=== PATIENT | male | born 1930 | race Caucasian/White ===

== ENCOUNTER 2017-05-31 14:18 | Inpatient (IN) | payer MEDICARE ==
--- NOTE | 2017-05-31 15:06 | CR ---
Chest 1V Frontal HISTORY: fever FINDINGS: There are interstitial infiltrates right lower lobe superimposed over the right hemidiaphr agm. Minimal patchy infiltrates are seen right mid chest. Left lung is clear. Cardiomediastinal silh ouette is within normal limits. Atherosclerotic calcification is seen in the aortic arch. No vascula r redistribution or pleural fluid is seen. Bony structures are osteopenic. Anterolateral osteophytes are noted along the thoracic spine. There is slight scoliosis convex to the right. IMPRESSION: Possible right lower lobe pneumonia. Recommend clinical correlation and follow-up.
--- NOTE | 2017-05-31 15:13 | EDM.PDOC ---
[id number] [address] [place] [address] VIA [facility] Time Seen by Provider: 05/31/17 15:13 Source of Information: Reports: Patient, EMS Notes Reviewed History Limitations: Reports: Other (pt is confused and he does not want to be here. According to the assisted living he is much weaker and much more confused. ) - History of Present Illness Onset: Gradual Duration: Day(s): Location: Reports: Generalized, Other (pt has generalized weakness. ) Associated Symptoms: Reports: Confusion, Loss of Appetite, Malaise, Weakness - Related Data Allergies Allergy/AdvReac Type Severity Reaction Status Date / Time No Known Allergies Allergy Verified 05/31/17 14:45 Home Meds: Home Meds Aspirin/Dipyridamole [Aggrenox 200-25 MG] 1 tab PO BID 06/03/15 [History] Insulin Glargine,Hum.Rec.Anlog [Lantus Solostar] 12 unit SQ BEDTIME 06/03/15 [ History] Simvastatin [Zocor] 20 mg PO BEDTIME 06/03/15 [History] Ascorbic Acid [Vitamin C] 1 tab PO DAILY 05/31/17 [History] Aspirin 1 tab PO DAILY 05/31/17 [History] Cholecalciferol (Vitamin D3) [Vitamin D3] 1 cap PO DAILY 05/31/17 [History] Cod Liver Oil 1 cap PO DAILY 05/31/17 [History] Ferrous Sulfate [Iron] 1 tab PO DAILY 05/31/17 [History] Megestrol [Megace] 40 mg PO TID 05/31/17 [History] Multivitamin [Multivitamins] 1 tab PO DAILY 05/31/17 [History] Polyethylene Glycol 3350 [MiraLAX] 1 dose PO DAILY 05/31/17 [History] Amoxicillin/Potassium Clav [Augmentin 875-125 Tablet] 1 each PO BID #8 tablet [Rx] Lactobac Cmb #3/Fos/Pantethine [Probiotic & Acidophilus] 2 each PO BID #120 capsule 06/02/17 [Rx] Past Medical History HEENT History: Reports: None Cardiovascular History: Reports: None Respiratory History: Reports: None Gastrointestinal History: Reports: None Genitourinary History: Reports: None Musculoskeletal History: Reports: Fracture, Other (See Below) Other Musculoskeletal History: Pelvic fracture Neurological History: Reports: CVA Psychiatric History: Reports: None Endocrine/Metabolic History: Reports: Diabetes, Type II Hematologic History: Reports: None Immunologic History: Reports: None Oncologic (Cancer) History: Reports: None Dermatologic History: Reports: None - Past Surgical History Other Musculoskeletal Surgeries/Procedures:: back surgery Social & Family History - Tobacco Use Smoking Status *Q: Unknown Ever Smoked Second Hand Smoke Exposure: No - Recreational Drug Use Recreational Drug Use: No ED ROS GENERAL - Review of Systems Review Of Systems: See Below Constitutional: Reports: Fever, Chills, Malaise HEENT: Reports: No Symptoms Respiratory: Reports: Shortness of Breath, Other ( particularly with activity. ) Cardiovascular: Reports: No Symptoms Endocrine: Reports: No Symptoms, High Glucose GI/Abdominal: Reports: No Symptoms : Reports: No Symptoms Musculoskeletal: Reports: No Symptoms Skin: Reports: No Symptoms ED EXAM, GENERAL - Physical Exam Exam: See Below Free Text/Narrative:: pt arrived with a history of tem spikes into the 102 range. He has been very weak and really not standing and walking as usual. Exam Limited By: Other (confusion has increased.) General Appearance: Alert, Anxious Ears: Normal TMs Nose: Normal Inspection Throat/Mouth: Normal Inspection Head: Atraumatic Neck: Normal Inspection Respiratory/Chest: No Respiratory Distress, Rhonchi Cardiovascular: Regular Rate, Rhythm GI/Abdominal: Soft, Non-Tender Rectal (Males) Exam: Deferred Back Exam: Normal Inspection Extremities: Normal Inspection Course - Vital Signs Last Recorded V/S: Last Vital Signs Temp 35.9 C 06/02/17 10:53 Pulse 90 06/02/17 10:53 Resp 16 06/02/17 10:53 BP 118/60 06/02/17 10:53 Pulse Ox 98 06/02/17 10:53 - Orders/Labs/Meds Labs: Laboratory Tests 05/31/17 05/31/17 05/31/17 Range/Units 14:46 14:46 15:11 WBC 7.4 (4.5-11.0) K/uL RBC 3.63 L (4.30-5.90) M/uL Hgb 11.4 L (12.0-15.0) g/dL Hct 34.3 L (40.0-54.0) % MCV 95 (80-98) fL MCH 31 (27-31) pg MCHC 33 (32-36) % Plt Count 438 H (150-400) K/uL Neut % (Auto) 66 (36-66) % Lymph % (Auto) 20 L (24-44) % [place] % (Auto) 10 H (2-6) % Eos % (Auto) 2 (2-4) % Baso % (Auto) 1 (0-1) % Sodium 136 L (140-148) mmol/L Potassium 4.9 (3.6-5.2) mmol/L Chloride 99 L (100-108) mmol/L Carbon Dioxide 27 (21-32) mmol/L Anion Gap 14.9 H (5.0-14.0) mmol/L BUN 27 H (7-18) mg/dL Creatinine 1.2 (0.8-1.3) mg/dL Est Cr Clr Drug Dosing 35.23 mL/min Estimated GFR (MDRD) 58 L (>60) Glucose 420 H* (74-106) mg/dL Lactic Acid 1.8 (0.4-2.0) mmol/L Calcium 9.4 (8.5-10.1) mg/dL Total Bilirubin 0.1 L D (0.2-1.0) mg/dL AST 17 (15-37) U/L ALT 28 (12-78) U/L Alkaline Phosphatase 87 (46-116) U/L Total Protein 8.4 H (6.4-8.2) g/dL Albumin 2.7 L (3.4-5.0) g/dL Globulin 5.7 H (2.3-3.5) g/dL Albumin/Globulin Ratio 0.5 L (1.2-2.2) Urine Color Urine Appearance Urine pH (4.5-8.0) Ur Specific [place] (1.008-1.030) Urine Protein (NEGATIVE) mg/dL Urine Glucose (UA) (NEGATIVE) mg/dL Urine Ketones (NEGATIVE) mg/dL Urine Occult Blood (NEGATIVE) Urine Nitrite (NEGAITVE) Urine Bilirubin (NEGATIVE) Urine Urobilinogen (NORMAL) mg/dL Ur Leukocyte Esterase (NEGATIVE) Urine RBC (0-5) Urine WBC (0-5) Ur Epithelial Cells Amorphous Sediment Urine Bacteria Urine Mucus 05/31/17 Range/Units 15:40 WBC (4.5-11.0) K/uL RBC (4.30-5.90) M/uL Hgb (12.0-15.0) g/dL Hct (40.0-54.0) % MCV (80-98) fL MCH (27-31) pg MCHC (32-36) % Plt Count (150-400) K/uL Neut % (Auto) (36-66) % Lymph % (Auto) (24-44) % [place] % (Auto) (2-6) % Eos % (Auto) (2-4) % Baso % (Auto) (0-1) % Sodium (140-148) mmol/L Potassium (3.6-5.2) mmol/L Chloride (100-108) mmol/L Carbon Dioxide (21-32) mmol/L Anion Gap (5.0-14.0) mmol/L BUN (7-18) mg/dL Creatinine (0.8-1.3) mg/dL Est Cr Clr Drug Dosing mL/min Estimated GFR (MDRD) (>60) Glucose (74-106) mg/dL Lactic Acid (0.4-2.0) mmol/L Calcium (8.5-10.1) mg/dL Total Bilirubin (0.2-1.0) mg/dL AST (15-37) U/L ALT (12-78) U/L Alkaline Phosphatase (46-116) U/L Total Protein (6.4-8.2) g/dL Albumin (3.4-5.0) g/dL Globulin (2.3-3.5) g/dL Albumin/Globulin Ratio (1.2-2.2) Urine Color Yellow Urine Appearance Cloudy Urine pH 6.0 (4.5-8.0) Ur Specific [place] 1.015 (1.008-1.030) Urine Protein Negative (NEGATIVE) mg/dL Urine Glucose (UA) 1000 H (NEGATIVE) mg/dL Urine Ketones Negative (NEGATIVE) mg/dL Urine Occult Blood Moderate (NEGATIVE) Urine Nitrite Negative (NEGAITVE) Urine Bilirubin Negative (NEGATIVE) Urine Urobilinogen Normal (NORMAL) mg/dL Ur Leukocyte Esterase Large (NEGATIVE) Urine RBC 5-10 H (0-5) Urine WBC >100 H (0-5) Ur Epithelial Cells Few Amorphous Sediment Not seen Urine Bacteria Many Urine Mucus Few Meds: Medications Discontinued Medications Generic Name Dose Route Start Last Admin Trade Name Olivia PRN Reason Stop Dose Admin Acetaminophen 650 mg 05/31/17 17:55 Tylenol PO Q4H PRN Pain (Mild 1-3)/fever Albuterol 2.5 mg 05/31/17 17:55 Proventil Neb Soln NEB Q4H PRN Shortness Of Breath/wheezing Aspirin 81 mg 06/01/17 09:00 06/02/17 08:28 Aspirin PO 81 mg DAILY SHAKIRA Administration Barium Sulfate 25 gm 06/01/17 08:12 E-Z-Paste PO 06/01/17 08:13 . DIRECTED PRN RADIOLOGY EXAM Barium Sulfate 50 gm 06/01/17 08:12 E-Z-Hd PO 06/01/17 08:13 . DIRECTED PRN RADIOLOGY EXAM Dextrose 15 gm 05/31/17 17:55 Glutose 15 PO ONETIME PRN Hypoglycemia Dextrose/Water 50 ml 05/31/17 17:55 Dextrose 50% In Water IV ONETIME PRN Hypoglycemia Dipyridamole/Aspirin 1 cap 05/31/17 21:00 06/02/17 08:29 Aggrenox 200-25 Mg PO 1 cap BID SHAKIRA Administration Divalproex Sodium 250 mg 05/31/17 17:55 06/02/17 08:15 Divalproex Sodium PO 250 mg BIDMEALS SHAKIRA Administration Docusate Sodium 100 mg 05/31/17 17:55 Colace PO BID PRN Constipation Enoxaparin Sodium 40 mg 05/31/17 17:55 06/02/17 08:29 Lovenox SUBCUT 40 mg DAILY SHAKIRA Administration Haloperidol Lactate 1 mg 05/31/17 17:55 Haldol IVPUSH Q2H PRN Agitation Sodium Chloride 1,000 mls @ 500 mls/hr 05/31/17 15:15 05/31/17 16:15 Normal Saline IV 500 mls/hr ASDIRECTED SHAKIRA Administration Ampicillin Sodium/Sulbactam 50 mls @ 100 mls/hr 05/31/17 18:00 06/02/17 11:27 Sodium 1.5 gm/ Sodium Chloride IV 100 mls/hr Q6H SHAKIRA Administration Sodium Chloride 1,000 mls @ 125 mls/hr 05/31/17 17:55 06/02/17 05:58 Normal Saline IV 125 mls/hr ASDIRECTED SHAKIRA Administration Sodium Chloride 500 mls @ 250 mls/hr 06/01/17 03:04 06/01/17 03:25 Normal Saline IV 06/01/17 05:03 250 mls/hr .BOLUS ONE Administration Sodium Chloride 1,000 mls @ 500 mls/hr 06/01/17 08:30 06/01/17 08:35 Normal Saline IV 06/01/17 10:31 500 mls/hr ASDIRECTED SHAKIRA Administration Insulin Aspart 0 unit 05/31/17 18:45 06/02/17 11:23 Novolog SUBCUT 3 units WITHMEALSANDBED SHAKIRA Administration Protocol Insulin Detemir 12 unit 05/31/17 21:00 05/31/17 21:50 Levemir SUBCUT 12 units BEDTIME SHAKIRA Administration Insulin Detemir 12 unit 06/01/17 07:12 Levemir SUBCUT BEDTIME SHAKIRA Magnesium Hydroxide 30 ml 05/31/17 17:55 Milk Of Magnesia PO Q12H PRN Constipation Melatonin 9 mg 05/31/17 21:00 06/01/17 21:59 Melatonin PO 9 mg BEDTIME SHAKIRA Administration Ondansetron HCl 4 mg 05/31/17 17:55 Zofran IV Q4H PRN Nausea/Vomiting Pneumococcal Polyvalent Vaccine 0.5 ml 06/02/17 14:00 Pneumovax 23 IM 06/02/17 14:01 .ONCE ONE Polyethylene Glycol 17 gm 06/01/17 09:00 06/02/17 08:29 Miralax PO 17 gm DAILY SHAKIRA Administration Polyethylene Glycol 17 gm 05/31/17 17:55 Miralax PO DAILY PRN Constipation Simvastatin 20 mg 05/31/17 21:00 06/01/17 22:01 Zocor PO 20 mg BEDTIME SHAKIRA Administration Sodium Chloride 10 ml 05/31/17 17:55 Saline Flush FLUSH ASDIRECTED PRN Keep Vein Open - Re-Assessments/Exams Free Text/Narrative Re-Assessment/Exam: 05/31/17 16:25 urine hs alot of wbcs and bacteria. This was cultured. He has a pneumonia on the rt lung fied. His wbc is not elevated. He was started omn a fluid blus. his lactic acid was still normal. Departure - Departure Time of Disposition: 16:26 Disposition: Admitted As Inpatient 67 Condition: Fair Clinical Impression: Sepsis, Pneumonia involving right lung, Dehydration UTI (urinary tract infection) Qualifiers: Urinary tract infection type: acute cystitis - Discharge Information
[2017-05-31] MEDS ORDERED: Sodium Chloride 0.9% 1,000 ML IV SCH (15:15)
--- NOTE | 2017-05-31 16:47 | PCM.HP ---
H&P History of Present Illness - General Date of Service: 05/31/17 Admit Problem/Dx: Admission Diagnosis/Problem Admission Diagnosis/Problem Pneumonia Source of Information: Patient, Provider History Limitations: Reports: Altered Mental Status (Dementia with confusion exacerbated by current illness) - History of Present Illness Initial Comments - Free Text/Narative: Mr. Carey is an 86-year-old gentleman who is admitted through the emergency department with aspiration pneumonia. By history he aspirated on 21 May and required a Heimlich maneuver. Since then he has gradually become more lethargic and weak and has been spiking regular temperature elevations 102. On evaluation in the emergency department, white blood cell count is normal but chest x-ray shows evidence of a right lung pneumonia. Patient has underlying dementia and is unable to provide significant history concerning recent symptoms or events. - Related Data Allergies/Adverse Reactions: Allergies Allergy/AdvReac Type Severity Reaction Status Date / Time No Known Allergies Allergy Verified 05/31/17 14:45 Home Medications: Home Meds Aspirin/Dipyridamole [Aggrenox 200-25 MG] 1 tab PO BID 06/03/15 [History] Insulin Glargine,Hum.Rec.Anlog [Lantus Solostar] 12 unit SQ BEDTIME 06/03/15 [ History] Simvastatin [Zocor] 20 mg PO BEDTIME 06/03/15 [History] Ascorbic Acid [Vitamin C] 1 tab PO DAILY 05/31/17 [History] Aspirin 1 tab PO DAILY 05/31/17 [History] Cholecalciferol (Vitamin D3) [Vitamin D3] 1 cap PO DAILY 05/31/17 [History] Cod Liver Oil 1 cap PO DAILY 05/31/17 [History] Ferrous Sulfate [Iron] 1 tab PO DAILY 05/31/17 [History] Megestrol [Megace] 40 mg PO TID 05/31/17 [History] Multivitamin [Multivitamins] 1 tab PO DAILY 05/31/17 [History] Polyethylene Glycol 3350 [MiraLAX] 1 dose PO DAILY 05/31/17 [History] Past Medical History HEENT History: Reports: None Cardiovascular History: Reports: None Respiratory History: Reports: None Gastrointestinal History: Reports: None Genitourinary History: Reports: None Musculoskeletal History: Reports: Fracture, Other (See Below) Other Musculoskeletal History: Pelvic fracture Neurological History: Reports: CVA Psychiatric History: Reports: None Endocrine/Metabolic History: Reports: Diabetes, Type II Hematologic History: Reports: None Immunologic History: Reports: None Oncologic (Cancer) History: Reports: None Dermatologic History: Reports: None - Past Surgical History Other Musculoskeletal Surgeries/Procedures:: back surgery Social & Family History - Tobacco Use Smoking Status *Q: Unknown Ever Smoked Second Hand Smoke Exposure: No - Recreational Drug Use Recreational Drug Use: No H&P Review of Systems - Review of Systems: Review Of Systems: Unable To Obtain General: Reports: ROS unobtainable (Secondary to dementia) Exam - Exam Exam: See Below - Vital Signs Vital Signs: Last Vital Signs Temp 98.8 F 05/31/17 14:40 Pulse 94 05/31/17 16:35 Resp 20 05/31/17 16:35 BP 141/65 H 05/31/17 16:35 Pulse Ox 95 05/31/17 16:35 Weight: 122 lb - Exam Quality Assessment: DVT Prophylaxis General: Alert, Cooperative, Mild Distress HEENT: Conjunctiva Clear, Hearing Intact, Mucosa Moist & [place], Normal Nasal Septum, Posterior Pharynx Clear, Pupils Equal, Pupils Reactive Neck: Supple, Trachea Midline, +2 Carotid Pulse wo Bruit Lungs: Clear to Auscultation, Normal Respiratory Effort Cardiovascular: Regular Rate, Regular Rhythm, Normal S1, Normal S2. No: Systolic Murmur, Diastolic Murmur GI/Abdominal Exam: Normal Bowel Sounds, Soft, Non-Tender, No Distention Extremities: Normal Inspection, No Pedal Edema Skin: Warm, Dry, Intact Neurological: Cranial Nerves Intact, Strength Equal Bilateral, Normal Speech, Normal Tone, Sensation Intact. No: Focal Deficit Neuro Extensive - Mental Status: Alert, Memory Loss-Remote Events, Memory Loss- Recent Events. No: Normal Cognition, Memory Intact Psychiatric: Agitated - Patient Data Lab Results Last 24 hrs: Laboratory Results - last 24 hr 05/31/17 05/31/17 05/31/17 Range/Units 14:46 14:46 15:11 WBC 7.4 (4.5-11.0) K/uL RBC 3.63 L (4.30-5.90) M/uL Hgb 11.4 L (12.0-15.0) g/dL Hct 34.3 L (40.0-54.0) % MCV 95 (80-98) fL MCH 31 (27-31) pg MCHC 33 (32-36) % Plt Count 438 H (150-400) K/uL Neut % (Auto) 66 (36-66) % Lymph % (Auto) 20 L (24-44) % [place] % (Auto) 10 H (2-6) % Eos % (Auto) 2 (2-4) % Baso % (Auto) 1 (0-1) % Sodium 136 L (140-148) mmol/L Potassium 4.9 (3.6-5.2) mmol/L Chloride 99 L (100-108) mmol/L Carbon Dioxide 27 (21-32) mmol/L Anion Gap 14.9 H (5.0-14.0) mmol/L BUN 27 H (7-18) mg/dL Creatinine 1.2 (0.8-1.3) mg/dL Est Cr Clr Drug Dosing 35.23 mL/min Estimated GFR (MDRD) 58 L (>60) Glucose 420 H* (74-106) mg/dL Lactic Acid 1.8 (0.4-2.0) mmol/L Calcium 9.4 (8.5-10.1) mg/dL Total Bilirubin 0.1 L D (0.2-1.0) mg/dL AST 17 (15-37) U/L ALT 28 (12-78) U/L Alkaline Phosphatase 87 (46-116) U/L Total Protein 8.4 H (6.4-8.2) g/dL Albumin 2.7 L (3.4-5.0) g/dL Globulin 5.7 H (2.3-3.5) g/dL Albumin/Globulin Ratio 0.5 L (1.2-2.2) Urine Color Urine Appearance Urine pH (4.5-8.0) Ur Specific [place] (1.008-1.030) Urine Protein (NEGATIVE) mg/dL Urine Glucose (UA) (NEGATIVE) mg/dL Urine Ketones (NEGATIVE) mg/dL Urine Occult Blood (NEGATIVE) Urine Nitrite (NEGAITVE) Urine Bilirubin (NEGATIVE) Urine Urobilinogen (NORMAL) mg/dL Ur Leukocyte Esterase (NEGATIVE) Urine RBC (0-5) Urine WBC (0-5) Ur Epithelial Cells Amorphous Sediment Urine Bacteria Urine Mucus 05/31/17 Range/Units 15:40 WBC (4.5-11.0) K/uL RBC (4.30-5.90) M/uL Hgb (12.0-15.0) g/dL Hct (40.0-54.0) % MCV (80-98) fL MCH (27-31) pg MCHC (32-36) % Plt Count (150-400) K/uL Neut % (Auto) (36-66) % Lymph % (Auto) (24-44) % [place] % (Auto) (2-6) % Eos % (Auto) (2-4) % Baso % (Auto) (0-1) % Sodium (140-148) mmol/L Potassium (3.6-5.2) mmol/L Chloride (100-108) mmol/L Carbon Dioxide (21-32) mmol/L Anion Gap (5.0-14.0) mmol/L BUN (7-18) mg/dL Creatinine (0.8-1.3) mg/dL Est Cr Clr Drug Dosing mL/min Estimated GFR (MDRD) (>60) Glucose (74-106) mg/dL Lactic Acid (0.4-2.0) mmol/L Calcium (8.5-10.1) mg/dL Total Bilirubin (0.2-1.0) mg/dL AST (15-37) U/L ALT (12-78) U/L Alkaline Phosphatase (46-116) U/L Total Protein (6.4-8.2) g/dL Albumin (3.4-5.0) g/dL Globulin (2.3-3.5) g/dL Albumin/Globulin Ratio (1.2-2.2) Urine Color Yellow Urine Appearance Cloudy Urine pH 6.0 (4.5-8.0) Ur Specific [place] 1.015 (1.008-1.030) Urine Protein Negative (NEGATIVE) mg/dL Urine Glucose (UA) 1000 H (NEGATIVE) mg/dL Urine Ketones Negative (NEGATIVE) mg/dL Urine Occult Blood Moderate (NEGATIVE) Urine Nitrite Negative (NEGAITVE) Urine Bilirubin Negative (NEGATIVE) Urine Urobilinogen Normal (NORMAL) mg/dL Ur Leukocyte Esterase Large (NEGATIVE) Urine RBC 5-10 H (0-5) Urine WBC >100 H (0-5) Ur Epithelial Cells Few Amorphous Sediment Not seen Urine Bacteria Many Urine Mucus Few Result Diagrams: 05/31/17 14:46 05/31/17 14:46 *Q Meaningful Use (ADM) - VTE *Q VTE Criteria *Q: - VTE Risk Assess *Q Each Risk Factor Represents 1 Point: Serious Lung Disease Including Pneumonia, Less than 1 Month Total Score 1 Point Risk Factors: 1 Each Risk Factor Represents 2 Points: None Total Score 2 Point Risk Factors: 0 Each Risk Factor Represents 3 Points: Age 75 Years or Greater Total Score 3 Point Risk Factors: 3 Each Risk Factor Represents 5 Points: None Total Score 5 Point Risk Factors: 0 Venous Thromboembolism Risk Factor Score *Q: 4 - Stroke *Q Stroke Criteria *Q: - AMI *Q AMI Criteria *Q: Problem List Initiated/Reviewed/Updated: Yes Orders Last 24hrs: Active Orders 24 hr Category Date Time Status Patient Status Manage Transfer [TRANSFER] Routine ADT 05/31/17 16:24 Ordered CULTURE BLOOD [BC] Urgent Lab 05/31/17 15:30 Received CULTURE BLOOD [BC] Urgent Lab 05/31/17 15:30 Received CULTURE URINE [RM] Stat Lab 05/31/17 16:25 Ordered Sodium Chloride 0.9% [Normal Saline] 1,000 ml Med 05/31/17 15:15 Active IV ASDIRECTED Blood Culture x2 Reflex Set [OM.PC] Urgent Oth 05/31/17 15:12 Ordered Resuscitation Status Routine Resus Stat 05/31/17 16:26 Ordered Medication Orders Sodium Chloride (Normal Saline) 1,000 mls @ 500 mls/hr IV ASDIRECTED SHAKIRA Last Admin: 05/31/17 16:15 Dose: 500 mls/hr Assessment/Plan Comment:: ASSESSMENT AND PLAN ASPIRATION PNEUMONIA-by history aspirated several days ago and since then has become more weak lethargic confused with regular temperature elevations 102. White blood cell count is normal, chest x-ray shows evidence of a right lung infiltrate. There is no evidence of sepsis on current evaluation. -Blood cultures pending -Nebulized albuterol as needed -Supplemental oxygen as needed -Unasyn 1.5 g IV every 6 hours HISTORY OF ASPIRATION -Speech pathology consult -Video swallowing study URINARY TRACT INFECTION -Urine culture pending -Current antibiotic therapy should provide adequate coverage TYPE 2 DIABETES MELLITUS -Continue usual dose of long-acting insulin -4 times a day glucometers -Low-dose sliding scale NovoLog DEMENTIA-he has been mildly to moderately agitated while in the emergency department and is certainly very confused, unable to provide significant history concerning recent symptoms or events. -Melatonin 9 mg by mouth daily at bedtime -Depakote 250 mg by mouth twice a day -Haldol 1 mg IV every 2 hours as needed for agitation CHRONIC KIDNEY DISEASE STAGE III -Closely monitor urine output and renal function during hospital stay PALLIATIVE CARE-patient has previously decided on DNR/DNI status, does not want aggressive interventions other than IV fluids and antibiotics MAINTENANCE ISSUES -DVT prophylaxis; Lovenox 40 mg subcutaneous daily -GI prophylaxis; not indicated -[place] catheter; not indicated -Nutrition; regular diet pending swallowing evaluation -Nicotine dependence; not required CODE STATUS-DNR/DNI ADMISSION STATUS-patient will be admitted to inpatient status, expect at least a 2 night hospital stay for evaluation and management of problems as outlined above. At the time of this admission I do not reasonably expected evaluation and management of this problem will require more than a 96 hour hospital stay. DISPOSITION-anticipate discharge to home after the hospital stay. PRIMARY CARE PROVIDER-Dr. Maza
[2017-05-31] MEDS ORDERED: Acetaminophen 325 MG Tab PO PRN (17:55)
[2017-05-31] MEDS ORDERED: 50% Dextrose in Water 50 ML Syringe IV PRN (17:55)
[2017-05-31] MEDS ORDERED: Polyethylene Glycol 3350 Powder 17 GM Packet PO PRN (17:55)
[2017-05-31] MEDS ORDERED: Albuterol 0.083% 2.5 MG/3 ML Neb Soln NEB PRN (17:55)
[2017-05-31] MEDS ORDERED: Haloperidol Lactate 5 MG/ML SDV IVPUSH PRN (17:55)
[2017-05-31] MEDS ORDERED: Docusate Sodium 100 MG Cap PO PRN (17:55)
[2017-05-31] MEDS ORDERED: Sodium Chloride 0.9% 10 ML Syringe FLUSH PRN (17:55)
[2017-05-31] MEDS ORDERED: Glucose Gel 15 GM in 37.5 GM Tube PO PRN (17:55)
[2017-05-31] MEDS ORDERED: Magnesium Hydroxide 400 MG/5 ML Susp 30 ML Cup PO PRN (17:55)
[2017-05-31] MEDS ORDERED: Ondansetron 4 MG/2 ML SDV IV PRN (17:55)
[2017-05-31] MEDS: Sodium Chloride 0.9% 1,000 ML IV SCH (18:29)
[2017-05-31] MEDS: Ampicillin/Sulbactam Na 1.5 GM in Sodium Chloride 0.9% 50 ML IV SCH ×2 (18:36→23:13)
[2017-05-31] MEDS: Enoxaparin 40 MG/0.4 ML Syringe SUBCUT SCH (18:37)
[2017-05-31] MEDS: Divalproex Sodium Delayed-Release 250 MG Tab.CR PO SCH (18:41)
[2017-05-31] MEDS: Insulin Aspart 100 Units/ML 3 ML Pen SUBCUT SCH ×2 (18:42→21:49)
[2017-05-31] MEDS ORDERED: Insulin Detemir 100 Units/ML 3 ML Pen SUBCUT SCH (21:00)
[2017-05-31] MEDS: Melatonin 3 MG Tab PO SCH (21:51)
[2017-05-31] MEDS: Simvastatin 20 MG Tab PO SCH (21:52)
[2017-05-31] MEDS: Aspirin/Dipyridamole 200-25 MG Cap.ER PO SCH (23:13)
[2017-06-01] MEDS: Sodium Chloride 0.9% 1,000 ML IV SCH ×3 (02:34→21:59)
[2017-06-01] MEDS ORDERED: Sodium Chloride 0.9% 500 ML IV ONE (03:04)
[2017-06-01] MEDS: Ampicillin/Sulbactam Na 1.5 GM in Sodium Chloride 0.9% 50 ML IV SCH ×3 (05:40→19:02)
[2017-06-01] MEDS ORDERED: Insulin Detemir 100 Units/ML 3 ML Pen SUBCUT SCH (07:12)
[2017-06-01] MEDS ORDERED: Barium Sulfate 60% w/w Esophageal Crm 454 GM Tube PO PRN (08:12)
[2017-06-01] MEDS ORDERED: Barium Sulfate 98% Powder for Susp 340 GM Bottle PO PRN (08:12)
[2017-06-01] MEDS: Divalproex Sodium Delayed-Release 250 MG Tab.CR PO SCH ×2 (08:20→17:26)
[2017-06-01] MEDS: Insulin Aspart 100 Units/ML 3 ML Pen SUBCUT SCH ×4 (08:21→21:56)
[2017-06-01] MEDS: Aspirin 81 MG Tab.Chew PO SCH (08:21)
[2017-06-01] MEDS: Aspirin/Dipyridamole 200-25 MG Cap.ER PO SCH ×2 (08:21→22:01)
[2017-06-01] MEDS: Enoxaparin 40 MG/0.4 ML Syringe SUBCUT SCH (08:22)
[2017-06-01] MEDS: Polyethylene Glycol 3350 Powder 17 GM Packet PO SCH (08:22)
[2017-06-01] MEDS ORDERED: Sodium Chloride 0.9% 1,000 ML IV SCH (08:30)
--- NOTE | 2017-06-01 11:17 | PCM.PN ---
- General Info Date of Service: 06/01/17 Functional Status: Reports: Tolerating Diet, Urinating - Review of Systems General: Reports: Weakness. Denies: Fever, Chills Pulmonary: Reports: No Symptoms Cardiovascular: Reports: No Symptoms Gastrointestinal: Reports: No Symptoms Psychiatric: Reports: Confusion, Agitation Systems Review Comment:: Mr. Carey has been afebrile since admission but has experienced some mild hypotension requiring fluid boluses. Respiratory rate and heart rate have been good as well as oxygen saturation. He is intermittently agitated with ongoing confusion. Refused swallowing study that was ordered because of episode of aspiration requiring the Heimlich maneuver. He did have a previous swallowing study obtained in early March, recommendations were made to improve safety of swallowing which she has refused to follow. - Patient Data Vitals - Most Recent: Last Vital Signs Temp 97.8 F 06/01/17 07:28 Pulse 80 06/01/17 07:28 Resp 16 06/01/17 07:28 BP 89/55 L 06/01/17 07:28 Pulse Ox 94 L 06/01/17 02:33 Weight - Most Recent: 126 lb 15.992 oz I&O - Last 24 Hours: Intake & Output 05/31/17 06/01/17 06/01/17 22:59 06:59 14:59 Intake Total 290 1850 300 Balance 290 1850 300 Lab Results Last 24 Hours: Laboratory Results - last 24 hr 06/01/17 06/01/17 Range/Units 04:30 04:30 WBC 9.6 (4.5-11.0) K/uL RBC 2.91 L (4.30-5.90) M/uL Hgb 8.9 L D (12.0-15.0) g/dL Hct 27.6 L (40.0-54.0) % MCV 95 (80-98) fL MCH 31 (27-31) pg MCHC 32 (32-36) % Plt Count 400 (150-400) K/uL Neut % (Auto) 68 H (36-66) % Lymph % (Auto) 19 L (24-44) % Borden % (Auto) 10 H (2-6) % Eos % (Auto) 2 (2-4) % Baso % (Auto) 1 (0-1) % Sodium 144 (140-148) mmol/L Potassium 4.0 (3.6-5.2) mmol/L Chloride 111 H (100-108) mmol/L Carbon Dioxide 26 (21-32) mmol/L Anion Gap 11.0 (5.0-14.0) mmol/L BUN 21 H (7-18) mg/dL Creatinine 1.1 (0.8-1.3) mg/dL Est Cr Clr Drug Dosing 40.00 mL/min Estimated GFR (MDRD) > 60 (>60) Glucose 61 L (74-106) mg/dL Calcium 8.7 (8.5-10.1) mg/dL Magnesium 2.0 (1.8-2.4) mg/dL Med Orders - Current: Current Medications Acetaminophen (Tylenol) 650 mg PO Q4H PRN PRN Reason: Pain (Mild 1-3)/fever Albuterol (Proventil Neb Soln) 2.5 mg NEB Q4H PRN PRN Reason: Shortness Of Breath/wheezing Aspirin (Aspirin) 81 mg PO DAILY [facility] Last Admin: 06/01/17 08:21 Dose: 81 mg Dextrose (Glutose 15) 15 gm PO ONETIME PRN PRN Reason: Hypoglycemia Dextrose/Water (Dextrose 50% In Water) 50 ml IV ONETIME PRN PRN Reason: Hypoglycemia Dipyridamole/Aspirin (Aggrenox 200-25 Mg) 1 cap PO BID [facility] Last Admin: 06/01/17 08:21 Dose: 1 cap Divalproex Sodium (Divalproex Sodium) 250 mg PO BIDMEALS [facility] Last Admin: 06/01/17 08:20 Dose: 250 mg Docusate Sodium (Colace) 100 mg PO BID PRN PRN Reason: Constipation Enoxaparin Sodium (Lovenox) 40 mg SUBCUT DAILY [facility] Last Admin: 06/01/17 08:22 Dose: 40 mg Haloperidol Lactate (Haldol) 1 mg IVPUSH Q2H PRN PRN Reason: Agitation Ampicillin Sodium/Sulbactam (Sodium 1.5 gm/ Sodium Chloride) 50 mls @ 100 mls/ hr IV Q6H [facility] Last Admin: 06/01/17 05:40 Dose: 100 mls/hr Sodium Chloride (Normal Saline) 1,000 mls @ 125 mls/hr IV ASDIRECTED [facility] Last Admin: 06/01/17 02:34 Dose: 125 mls/hr Insulin Aspart (Novolog) 0 unit SUBCUT WITHMEALSANDBED [facility] PRN Reason: Protocol Last Admin: 06/01/17 08:21 Dose: Not Given Magnesium Hydroxide (Milk Of Magnesia) 30 ml PO Q12H PRN PRN Reason: Constipation Melatonin (Melatonin) 9 mg PO BEDTIME [facility] Last Admin: 05/31/17 21:51 Dose: 9 mg Ondansetron HCl (Zofran) 4 mg IV Q4H PRN PRN Reason: Nausea/Vomiting Pneumococcal Polyvalent Vaccine (Pneumovax 23) 0.5 ml IM .ONCE ONE Stop: 06/02/17 14:01 Polyethylene Glycol (Miralax) 17 gm PO DAILY [facility] Last Admin: 06/01/17 08:22 Dose: 17 gm Polyethylene Glycol (Miralax) 17 gm PO DAILY PRN PRN Reason: Constipation Simvastatin (Zocor) 20 mg PO BEDTIME [facility] Last Admin: 05/31/17 21:52 Dose: 20 mg Sodium Chloride (Saline Flush) 10 ml FLUSH ASDIRECTED PRN PRN Reason: Keep Vein Open Discontinued Medications Barium Sulfate (E-Z-Paste) 25 gm PO . DIRECTED PRN PRN Reason: RADIOLOGY EXAM Stop: 06/01/17 08:13 Barium Sulfate (E-Z-Hd) 50 gm PO . DIRECTED PRN PRN Reason: RADIOLOGY EXAM Stop: 06/01/17 08:13 Sodium Chloride (Normal Saline) 1,000 mls @ 500 mls/hr IV ASDIRECTED [facility] Last Admin: 05/31/17 16:15 Dose: 500 mls/hr Sodium Chloride (Normal Saline) 500 mls @ 250 mls/hr IV .BOLUS ONE Stop: 06/01/17 05:03 Last Admin: 06/01/17 03:25 Dose: 250 mls/hr Sodium Chloride (Normal Saline) 1,000 mls @ 500 mls/hr IV ASDIRECTED [facility] Stop: 06/01/17 10:31 Last Admin: 06/01/17 08:35 Dose: 500 mls/hr Insulin Detemir (Levemir) 12 unit SUBCUT BEDTIME [facility] Last Admin: 05/31/17 21:50 Dose: 12 units Insulin Detemir (Levemir) 12 unit SUBCUT BEDTIME [facility] - Exam General: Alert, No Acute Distress Lungs: Clear to Auscultation, Normal Respiratory Effort Cardiovascular: Regular Rate, Regular Rhythm, Murmurs GI/Abdominal Exam: Normal Bowel Sounds, Soft, Non-Tender, No Distention Extremities: Normal Inspection, No Pedal Edema Skin: Warm, Dry, Intact - Problem List Review Problem List Initiated/Reviewed/Updated: Yes - My Orders Last 24 Hours: My Active Orders 05/31/17 16:26 Resuscitation Status Routine 05/31/17 17:55 Patient Status [ADT] Routine Blood Glucose Check, Bedside [RC] QIDACANDBED Communication Order [RC] ASDIRECTED Diabetes Education [RC] Click to Edit Intake and Output [RC] QSHIFT Notify Provider Vital Signs [RC] ASDIRECTED Notify Provider [RC] PRN Oxygen Therapy [RC] PRN Peripheral IV Care [RC] Q12H RT Aerosol Therapy [RC] ASDIRECTED Up With Assistance [RC] ASDIRECTED VTE/DVT Education [RC] Per Unit Routine Vital Signs [RC] Q4H PT Evaluation and Treatment [CONS] Routine SPECIAL EVENTS DIRECTOR Evaluation and Treatment [CONS] Routine Acetaminophen [Tylenol] 650 mg PO Q4H PRN Albuterol [Proventil Neb Soln] 2.5 mg NEB Q4H PRN Dextrose 50% in Water 50 ml IV ONETIME PRN Dextrose [Glutose 15] 15 gm PO ONETIME PRN Divalproex Sodium 250 mg PO BIDMEALS Docusate Sodium [Colace] 100 mg PO BID PRN Enoxaparin [Lovenox] 40 mg SUBCUT DAILY Haloperidol Lactate [Haldol] 1 mg IVPUSH Q2H PRN Magnesium Hydroxide [Milk of Magnesia] 30 ml PO Q12H PRN Ondansetron [Zofran] 4 mg IV Q4H PRN Polyethylene Glycol 3350 [MiraLAX] 17 gm PO DAILY PRN Sodium Chloride 0.9% [Normal Saline] 1,000 ml IV ASDIRECTED Sodium Chloride 0.9% [Saline Flush] 10 ml FLUSH ASDIRECTED PRN Peripheral IV Insertion Adult [OM.PC] Routine 05/31/17 18:00 Ampicillin/Sulbactam Na [Unasyn] 1.5 gm Sodium Chloride 0.9% [Normal Saline] 50 ml IV Q6H 05/31/17 18:45 Insulin Aspart [NovoLOG] See Protocol SUBCUT WITHMEALSANDBED 05/31/17 21:00 Melatonin 9 mg PO BEDTIME 05/31/17 Dinner Regular Diet [DIET] 06/01/17 11:30 GLUCOSE POC LAB TO COLLECT [POC] QIDACANDBED 06/01/17 16:30 GLUCOSE POC LAB TO COLLECT [POC] QIDACANDBED 06/01/17 21:00 GLUCOSE POC LAB TO COLLECT [POC] QIDACANDBED 06/02/17 07:30 GLUCOSE POC LAB TO COLLECT [POC] QIDACANDBED 06/02/17 11:30 GLUCOSE POC LAB TO COLLECT [POC] QIDACANDBED 06/02/17 14:00 Pneumococcal Polyvalent-23 Vac [Pneumovax 23] 0.5 ml IM .ONCE ONE 06/02/17 16:30 GLUCOSE POC LAB TO COLLECT [POC] QIDACANDBED 06/02/17 21:00 GLUCOSE POC LAB TO COLLECT [POC] QIDACANDBED 06/03/17 07:30 GLUCOSE POC LAB TO COLLECT [POC] QIDACANDBED 06/03/17 11:30 GLUCOSE POC LAB TO COLLECT [POC] QIDACANDBED 06/03/17 16:30 GLUCOSE POC LAB TO COLLECT [POC] QIDACANDBED 06/03/17 21:00 GLUCOSE POC LAB TO COLLECT [POC] QIDACANDBED 06/04/17 07:30 GLUCOSE POC LAB TO COLLECT [POC] QIDACANDBED 06/04/17 11:30 GLUCOSE POC LAB TO COLLECT [POC] QIDACANDBED 06/04/17 16:30 GLUCOSE POC LAB TO COLLECT [POC] QIDACANDBED 06/04/17 21:00 GLUCOSE POC LAB TO COLLECT [POC] QIDACANDBED 06/05/17 07:30 GLUCOSE POC LAB TO COLLECT [POC] QIDACANDBED 06/05/17 11:30 GLUCOSE POC LAB TO COLLECT [POC] QIDACANDBED 06/05/17 16:30 GLUCOSE POC LAB TO COLLECT [POC] QIDACANDBED 06/05/17 21:00 GLUCOSE POC LAB TO COLLECT [POC] QIDACANDBED 06/06/17 07:30 GLUCOSE POC LAB TO COLLECT [POC] QIDACANDBED 06/06/17 11:30 GLUCOSE POC LAB TO COLLECT [POC] QIDACANDBED 06/06/17 16:30 GLUCOSE POC LAB TO COLLECT [POC] QIDACANDBED 06/06/17 21:00 GLUCOSE POC LAB TO COLLECT [POC] QIDACANDBED 06/07/17 07:30 GLUCOSE POC LAB TO COLLECT [POC] QIDACANDBED 06/07/17 11:30 GLUCOSE POC LAB TO COLLECT [POC] QIDACANDBED 06/07/17 16:30 GLUCOSE POC LAB TO COLLECT [POC] QIDACANDBED 06/07/17 21:00 GLUCOSE POC LAB TO COLLECT [POC] QIDACANDBED 06/08/17 07:30 GLUCOSE POC LAB TO COLLECT [POC] QIDACANDBED 06/08/17 11:30 GLUCOSE POC LAB TO COLLECT [POC] QIDACANDBED 06/08/17 16:30 GLUCOSE POC LAB TO COLLECT [POC] QIDACANDBED 06/08/17 21:00 GLUCOSE POC LAB TO COLLECT [POC] QIDACANDBED 06/09/17 07:30 GLUCOSE POC LAB TO COLLECT [POC] QIDACANDBED 06/09/17 11:30 GLUCOSE POC LAB TO COLLECT [POC] QIDACANDBED 06/09/17 16:30 GLUCOSE POC LAB TO COLLECT [POC] QIDACANDBED 06/09/17 21:00 GLUCOSE POC LAB TO COLLECT [POC] QIDACANDBED 06/10/17 07:30 GLUCOSE POC LAB TO COLLECT [POC] QIDACANDBED 06/10/17 11:30 GLUCOSE POC LAB TO COLLECT [POC] QIDACANDBED 06/10/17 16:30 GLUCOSE POC LAB TO COLLECT [POC] QIDACANDBED 06/10/17 21:00 GLUCOSE POC LAB TO COLLECT [POC] QIDACANDBED 06/11/17 07:30 GLUCOSE POC LAB TO COLLECT [POC] QIDACANDBED 06/11/17 11:30 GLUCOSE POC LAB TO COLLECT [POC] QIDACANDBED 06/11/17 16:30 GLUCOSE POC LAB TO COLLECT [POC] QIDACANDBED - Plan Plan:: ASSESSMENT AND PLAN ASPIRATION PNEUMONIA-by history aspirated several days ago and since then has become more weak lethargic confused with regular temperature elevations 102. White blood cell count has remained normal and he is been afebrile since admission. Blood pressures have been borderline requiring fluid boluses. -Blood cultures pending -Nebulized albuterol as needed -Supplemental oxygen as needed -Unasyn 1.5 g IV every 6 hours HISTORY OF ASPIRATION-patient refused swallowing study and has refused to follow recommendations concerning swallowing evaluation in the past URINARY TRACT INFECTION -Urine culture pending -Current antibiotic therapy should provide adequate coverage TYPE 2 DIABETES MELLITUS-hypoglycemic this morning -Hold long-acting insulin until appetite improves -4 times a day glucometers -Low-dose sliding scale NovoLog DEMENTIA-he has been mildly to moderately agitated while in the emergency department and is certainly very confused, unable to provide significant history concerning recent symptoms or events. -Melatonin 9 mg by mouth daily at bedtime -Depakote 250 mg by mouth twice a day -Haldol 1 mg IV every 2 hours as needed for agitation CHRONIC KIDNEY DISEASE STAGE III -Closely monitor urine output and renal function during hospital stay PALLIATIVE CARE-patient has previously decided on DNR/DNI status, does not want aggressive interventions other than IV fluids and antibiotics MAINTENANCE ISSUES -DVT prophylaxis; Lovenox 40 mg subcutaneous daily -GI prophylaxis; not indicated -Arrieta catheter; not indicated -Nutrition; regular diet pending swallowing evaluation -Nicotine dependence; not required CODE STATUS-DNR/DNI ADMISSION STATUS-patient will be admitted to inpatient status, expect at least a 2 night hospital stay for evaluation and management of problems as outlined above. At the time of this admission I do not reasonably expected evaluation and management of this problem will require more than a 96 hour hospital stay. DISPOSITION-anticipate discharge to home after the hospital stay. PRIMARY CARE PROVIDER-Dr. Maza
[2017-06-01] MEDS: Melatonin 3 MG Tab PO SCH (21:59)
[2017-06-01] MEDS: Simvastatin 20 MG Tab PO SCH (22:01)
[2017-06-02] MEDS: Ampicillin/Sulbactam Na 1.5 GM in Sodium Chloride 0.9% 50 ML IV SCH ×3 (00:11→11:27)
[2017-06-02] MEDS: Sodium Chloride 0.9% 1,000 ML IV SCH (05:58)
[2017-06-02] MEDS: Divalproex Sodium Delayed-Release 250 MG Tab.CR PO SCH (08:15)
[2017-06-02] MEDS: Aspirin 81 MG Tab.Chew PO SCH (08:28)
[2017-06-02] MEDS: Insulin Aspart 100 Units/ML 3 ML Pen SUBCUT SCH ×2 (08:28→11:23)
[2017-06-02] MEDS: Aspirin/Dipyridamole 200-25 MG Cap.ER PO SCH (08:29)
[2017-06-02] MEDS: Polyethylene Glycol 3350 Powder 17 GM Packet PO SCH (08:29)
[2017-06-02] MEDS: Enoxaparin 40 MG/0.4 ML Syringe SUBCUT SCH (08:29)
[2017-06-02 10:54] VITALS: BP 118/60
--- NOTE | 2017-06-02 11:41 | PCM.DCSUM1 ---
Discharge Summary - Hospital Course Brief History: Mr. Carey is an 86-year-old gentleman who is admitted through the emergency department with shortness of breath and fever secondary to right lung pneumonia, likely secondary to aspiration. - Discharge Data Discharge Date: 06/02/17 Discharge Disposition: DC/Tfer to Other 70 Condition: Fair - Discharge Diagnosis/Problem(s) (1) Aspiration pneumonia SNOMED Code(s): 343070346 ICD Code: J69.0 - PNEUMONITIS DUE TO INHALATION OF FOOD AND VOMIT Status: Acute Current Visit: Yes Qualifiers: Aspiration pneumonia type: due to regurgitated food Laterality: right Lung location: middle lobe of lung Qualified Code(s): J69.0 - Pneumonitis due to inhalation of food and vomit (2) UTI (urinary tract infection) SNOMED Code(s): 47673566 ICD Code: N39.0 - URINARY TRACT INFECTION, SITE NOT SPECIFIED Status: Acute Current Visit: Yes Qualifiers: Urinary tract infection type: acute cystitis (3) Dehydration SNOMED Code(s): 34178883 ICD Code: E86.0 - DEHYDRATION Status: Acute Current Visit: Yes (4) Type 2 diabetes mellitus SNOMED Code(s): 81380603 ICD Code: E11.9 - TYPE 2 DIABETES MELLITUS WITHOUT COMPLICATIONS Status: Acute Priority: Low Current Visit: Yes Qualifiers: Diabetes mellitus complication status: without complication Diabetes mellitus alf insulin use: without long chain dyeing machine operator use Qualified Code(s): E11.9 - Type 2 diabetes mellitus without complications - Patient Summary/Data Consults: Consultations 05/31/17 17:55 PT Evaluation and Treatment [CONS] Routine Please Evaluate and Treat. PT Reason for Consult: Strengthening This query below is only for informational purposes and is not editable. COLLABORATIVE TEACHER Evaluation and Treatment [CONS] Routine Please Evaluate and Treat COLLABORATIVE TEACHER Reason for Consult: Swallow This query below is only for informational purposes and is not editable. Hospital Course: Mr. Carey is an 86-year-old gentleman who had aspirated some food approximately 10 days prior to admission. Over the past several days prior to admission he developed shortness of breath, cough, and regular temperature elevations up to 102. Chest x-ray showed evidence of right lung infiltrate, white blood cell count was within normal range. He was felt to be somewhat dehydrated and also found to have evidence of a urinary tract infection. Blood cultures were obtained on admission and he was given IV fluids as well as IV antibiotic therapy with Unasyn to cover for possible aspiration pneumonia. Cultures remain negative up until the time of discharge, urine culture is growing, but final ID and sensitivities are pending. Was felt the Unasyn used for the aspiration pneumonia should well cover urinary tract infection as well as the Augmentin on discharge. He had no significant temperature elevations during his hospital stay and was feeling well with no significant respiratory compromise at the time of discharge. Speech pathology consult as well as video swallowing study were ordered but the patient refused to proceed with these evaluations. He did have a recent speech path and video swallowing study done in March and he was felt to be at risk for aspiration. He has refused to follow recommendations concerning eating modification. He did have some mild agitation and delirium on admission. This was well managed during the hospital stay with use of melatonin at night and Depakote twice daily. Glucose levels were monitored during hospital stay they were significantly elevated on admission but well controlled by the time of discharge. He will remain on a diabetic diet and activity will be as tolerated. Follow-up appointment will be scheduled with his primary care provider within one week. He will be treated with Augmentin 875 twice daily for an additional 4 days and will be on probiotics 2 tablets twice daily for the next month. - Patient Instructions Diet: Usual Diet as Tolerated Activity: As Tolerated Other/Special Instructions: please schedule follow-up appointment with primary care provider within one week. - Discharge Plan Prescriptions/Med Rec: Amoxicillin/Potassium Clav [Augmentin 875-125 Tablet] 1 each PO BID #8 tablet Lactobac Cmb #3/Fos/Pantethine [Probiotic & Acidophilus] 2 each PO BID #120 capsule Home Medications: Home Meds Aspirin/Dipyridamole [Aggrenox 200-25 MG] 1 tab PO BID 06/03/15 [History] Insulin Glargine,Hum.Rec.Anlog [Lantus Solostar] 12 unit SQ BEDTIME 06/03/15 [ History] Simvastatin [Zocor] 20 mg PO BEDTIME 06/03/15 [History] Ascorbic Acid [Vitamin C] 1 tab PO DAILY 05/31/17 [History] Aspirin 1 tab PO DAILY 05/31/17 [History] Cholecalciferol (Vitamin D3) [Vitamin D3] 1 cap PO DAILY 05/31/17 [History] Cod Liver Oil 1 cap PO DAILY 05/31/17 [History] Ferrous Sulfate [Iron] 1 tab PO DAILY 05/31/17 [History] Megestrol [Megace] 40 mg PO TID 05/31/17 [History] Multivitamin [Multivitamins] 1 tab PO DAILY 05/31/17 [History] Polyethylene Glycol 3350 [MiraLAX] 1 dose PO DAILY 05/31/17 [History] Amoxicillin/Potassium Clav [Augmentin 875-125 Tablet] 1 each PO BID #8 tablet [Rx] Lactobac Cmb #3/Fos/Pantethine [Probiotic & Acidophilus] 2 each PO BID #120 capsule 06/02/17 [Rx] Referrals: Wei Maza MD [Primary Care Provider] - - Patient Data Vitals - Most Recent: Last Vital Signs Temp 96.6 F 06/02/17 10:53 Pulse 90 06/02/17 10:53 Resp 16 06/02/17 10:53 BP 118/60 06/02/17 10:53 Pulse Ox 98 06/02/17 10:53 Weight - Most Recent: 126 lb 15.992 oz I&O - Last 24 hours: Intake & Output 06/01/17 06/02/17 06/02/17 22:59 06:59 14:59 Intake Total 3893 1396 1183 Balance 3893 1396 1183 Med Orders - Current: Current Medications Acetaminophen (Tylenol) 650 mg PO Q4H PRN PRN Reason: Pain (Mild 1-3)/fever Albuterol (Proventil Neb Soln) 2.5 mg NEB Q4H PRN PRN Reason: Shortness Of Breath/wheezing Aspirin (Aspirin) 81 mg PO DAILY [facility] Last Admin: 06/02/17 08:28 Dose: 81 mg Dextrose (Glutose 15) 15 gm PO ONETIME PRN PRN Reason: Hypoglycemia Dextrose/Water (Dextrose 50% In Water) 50 ml IV ONETIME PRN PRN Reason: Hypoglycemia Dipyridamole/Aspirin (Aggrenox 200-25 Mg) 1 cap PO BID [facility] Last Admin: 06/02/17 08:29 Dose: 1 cap Divalproex Sodium (Divalproex Sodium) 250 mg PO BIDMEALS [facility] Last Admin: 06/02/17 08:15 Dose: 250 mg Docusate Sodium (Colace) 100 mg PO BID PRN PRN Reason: Constipation Enoxaparin Sodium (Lovenox) 40 mg SUBCUT DAILY [facility] Last Admin: 06/02/17 08:29 Dose: 40 mg Haloperidol Lactate (Haldol) 1 mg IVPUSH Q2H PRN PRN Reason: Agitation Ampicillin Sodium/Sulbactam (Sodium 1.5 gm/ Sodium Chloride) 50 mls @ 100 mls/ hr IV Q6H [facility] Last Admin: 06/02/17 11:27 Dose: 100 mls/hr Insulin Aspart (Novolog) 0 unit SUBCUT WITHMEALSANDBED [facility] PRN Reason: Protocol Last Admin: 06/02/17 11:23 Dose: 3 units Magnesium Hydroxide (Milk Of Magnesia) 30 ml PO Q12H PRN PRN Reason: Constipation Melatonin (Melatonin) 9 mg PO BEDTIME [facility] Last Admin: 06/01/17 21:59 Dose: 9 mg Ondansetron HCl (Zofran) 4 mg IV Q4H PRN PRN Reason: Nausea/Vomiting Pneumococcal Polyvalent Vaccine (Pneumovax 23) 0.5 ml IM .ONCE ONE Stop: 06/02/17 14:01 Polyethylene Glycol (Miralax) 17 gm PO DAILY [facility] Last Admin: 06/02/17 08:29 Dose: 17 gm Polyethylene Glycol (Miralax) 17 gm PO DAILY PRN PRN Reason: Constipation Simvastatin (Zocor) 20 mg PO BEDTIME [facility] Last Admin: 06/01/17 22:01 Dose: 20 mg Sodium Chloride (Saline Flush) 10 ml FLUSH ASDIRECTED PRN PRN Reason: Keep Vein Open Discontinued Medications Barium Sulfate (E-Z-Paste) 25 gm PO . DIRECTED PRN PRN Reason: RADIOLOGY EXAM Stop: 06/01/17 08:13 Barium Sulfate (E-Z-Hd) 50 gm PO . DIRECTED PRN PRN Reason: RADIOLOGY EXAM Stop: 06/01/17 08:13 Sodium Chloride (Normal Saline) 1,000 mls @ 500 mls/hr IV ASDIRECTED [facility] Last Admin: 05/31/17 16:15 Dose: 500 mls/hr Sodium Chloride (Normal Saline) 1,000 mls @ 125 mls/hr IV ASDIRECTED [facility] Last Admin: 06/02/17 05:58 Dose: 125 mls/hr Sodium Chloride (Normal Saline) 500 mls @ 250 mls/hr IV .BOLUS ONE Stop: 06/01/17 05:03 Last Admin: 06/01/17 03:25 Dose: 250 mls/hr Sodium Chloride (Normal Saline) 1,000 mls @ 500 mls/hr IV ASDIRECTED [facility] Stop: 06/01/17 10:31 Last Admin: 06/01/17 08:35 Dose: 500 mls/hr Insulin Detemir (Levemir) 12 unit SUBCUT BEDTIME [facility] Last Admin: 05/31/17 21:50 Dose: 12 units Insulin Detemir (Levemir) 12 unit SUBCUT BEDTIME [facility] *Q Meaningful Use (DIS) - VTE *Q VTE Criteria *Q: - Stroke *Q Stroke Criteria *Q: - AMI *Q AMI Criteria *Q:
[2017-06-02] MEDS ORDERED: Pneumococcal Polyvalent-23 Vaccine 0.5 ML SDV IM ONE (14:00)
== END 2017-06-02 12:49 | disposition other institution (70) | DRG 178 ==
LOC: JP.ED 14:18 → JP.MS 16:24
PROVIDERS: ADMIT Hospitalist; ATTEND Hospitalist
DX: A41.9 Sepsis, unspecified organism (principal); N30.00 Acute cystitis without hematuria; J18.9 Pneumonia, unspecified organism; E86.0 Dehydration; J69.0 Pneumonitis due to inhalation of food and vomit; N39.0 Urinary tract infection, site not specified; E11.9 Type 2 diabetes mellitus without complications; F03.90 Unspecified dementia, unspecified severity, without behavioral disturbance, psychotic disturbance, mood disturbance, and anxiety; N18.3 Chronic kidney disease, stage 3 (moderate); Z79.899 Other long term (current) drug therapy; Z86.73 Personal history of transient ischemic attack (TIA), and cerebral infarction without residual deficits; Z51.5 Encounter for palliative care; Z66 Do not resuscitate
CPT/HCPCS: 36415; 71010 ×2; 80053; 81001; 82962; 83605; 85025; 87040 ×2; 87086; 87186; 96360; 99284; 99285; J7040; 80048; 83735; 87088; 92610-GN; 97110-GP; 97162-GP; 97530-GP; A9270-GY; J0287; J1650; J7050